=== PATIENT | female | born 1965 | race Caucasian/White ===

== ENCOUNTER → 2017-05-22 | Outpatient (REF) | payer OTHER ==
[2017-05-22 18:19] LABS: BASO # 0.1 10^3/uL (0.0-0.2); BASO % 1.2 % (0.0-1.0); EOS # 0.2 10^3/uL (0.0-0.50); EOS % 3.5 % (0.0-3.0); HEMOGLOBIN 9.2 g/dl (12.0-16.0); IMMATURE GRANULOCYTE % 0.3 % (0-3.0); LYMPH % 29.8 % (24.0-44.0); MEAN CORPUSCULAR HEMOGLOBIN 19.1 pg (27.0-33.0); MEAN CORPUSCULAR HGB CONC 28.8 g/dl (32.0-36.5); MEAN CORPUSCULAR VOLUME 66.4 fl (80.0-96.0); MONO # 0.4 10^3/uL (0.0-0.8); MONO % 5.6 % (0.0-5.0); NEUTROPHILS # 3.9 10^3/uL (1.8-7.7); NEUTROPHILS % 59.6 % (36.0-66.0); PLATELET COUNT, AUTOMATED 344 10^3/uL (150-450); RED BLOOD COUNT 4.82 10^6/uL (4.00-5.40); RED CELL DISTRIBUTION WIDTH 19.4 % (11.5-14.5); WHITE BLOOD COUNT 6.6 10^3/uL (4.0-10.0)
[2017-05-22 18:43] LABS: ALBUMIN 3.8 GM/DL (3.2-5.2); ALBUMIN/GLOBULIN RATIO 1.09 (1.00-1.93); ALKALINE PHOSPHATASE 114 U/L (45-117); ALT/SGPT 22 U/L (12-78); ANION GAP 8 MEQ/L (8-16); AST/SGOT 24 U/L (7-37); BILIRUBIN,TOTAL 0.2 MG/DL (0.2-1.0); BLOOD UREA NITROGEN 8 MG/DL (7-18); CALCIUM LEVEL 9.6 MG/DL (8.5-10.1); CARBON DIOXIDE LEVEL 26 MEQ/L (21-32); CHLORIDE LEVEL 107 MEQ/L (98-107); CREATININE FOR GFR 0.67 MG/DL (0.55-1.30); GLOMERULAR FILTRATION RATE > 60.0 (>51); GLUCOSE, FASTING 96 MG/DL (70-100); POTASSIUM SERUM 3.9 MEQ/L (3.5-5.1); SODIUM LEVEL 141 MEQ/L (136-145); TOTAL 25(OH) VITAMIN D 14.6 NG/ML (30.0-100.0); TOTAL PROTEIN 7.3 GM/DL (6.4-8.2)
[2017-05-22 18:52] LABS: ESTIMATED AVERAGE GLUCOSE 126 MG/DL (60-110)
[2017-05-22 20:30] LABS: CHLAMYDIA DNA AMPLIFICATION NEGATIVE (NEGATIVE); GC DNA AMPLIFICATION NEGATIVE (NEGATIVE)
[2017-05-24 10:45] LABS: HEPATITIS B SURFACE ANTIBODY NEGATIVE (POSITIVE)
== END ==
LOC: M LAB REF 16:22
DX: I10 Essential (primary) hypertension (principal)

== ENCOUNTER → 2017-07-31 | Outpatient (REF) | payer OTHER, MEDICAID | LOC: M LAB REF 18:15 | DX: Z12.4 Encounter for screening for malignant neoplasm of cervix (principal) ==

== ENCOUNTER → 2017-07-31 | Outpatient (REF) | payer OTHER ==
[2017-07-31 20:06] LABS: CHOLESTEROL LEVEL 205 MG/DL (<200); CHOLESTEROL RISK RATIO 3.106 (<5); HDL CHOLESTEROL 66 MG/DL (>40); NON-HDL-C 139 MG/DL; TRIGLYCERIDES LEVEL 60 MG/DL (<150)
[2017-08-02 12:53] LABS: HIV 1&2 SCREEN CENTAUR NEGATIVE (NEGATIVE)
== END ==
LOC: M LAB REF 17:31
DX: Z13.89 Encounter for screening for other disorder (principal); Z13.220 Encounter for screening for lipoid disorders
CPT/HCPCS: 80061

== ENCOUNTER 2017-09-16 13:12 | Outpatient (RCR) | payer OTHER | END 2017-10-12 | LOC: M PT 13:12 | DX: Z51.89 Encounter for other specified aftercare (principal); M25.562 Pain in left knee ==

== ENCOUNTER → 2017-09-27 | Outpatient (CLI) | payer OTHER ==
[2017-09-27 09:40] LABS: ANION GAP 7 MEQ/L (8-16); BLOOD UREA NITROGEN 14 MG/DL (7-18); CALCIUM LEVEL 9.7 MG/DL (8.5-10.1); CARBON DIOXIDE LEVEL 28 MEQ/L (21-32); CHLORIDE LEVEL 108 MEQ/L (98-107); CREATININE FOR GFR 0.76 MG/DL (0.55-1.30); GLOMERULAR FILTRATION RATE > 60.0 (>51); GLUCOSE, FASTING 94 MG/DL (70-100); MAGNESIUM LEVEL 2.3 MG/DL (1.8-2.4); POTASSIUM SERUM 4.6 MEQ/L (3.5-5.1); SODIUM LEVEL 143 MEQ/L (136-145)
[2017-09-27 10:14] LABS: ESTIMATED AVERAGE GLUCOSE 131 MG/DL (60-110); HEMOGLOBIN A1c 6.2 %
== END ==
LOC: M LAB 08:02
DX: R42 Dizziness and giddiness (principal)
CPT/HCPCS: 83735

== ENCOUNTER 2017-10-05 13:08 | Emergency (ER) | payer OTHER ==
[2017-10-05] MEDS: AUGMENTIN 875 MG TAB PO (14:03)
[2017-10-05] MEDS: METOCLOPRAMIDE 10 MG TAB PO (14:03)
[2017-10-05] MEDS: NAPROXEN 250 MG TAB PO (14:04)
== END 2017-10-05 14:18 | disposition home or self-care (01) ==
LOC: M ED 13:08
DX: R51 Headache (principal); I10 Essential (primary) hypertension; J01.90 Acute sinusitis, unspecified
CPT/HCPCS: 99282

== ENCOUNTER 2017-10-17 11:59 | Outpatient (RCR) | payer OTHER | END 2017-11-12 | LOC: M PT 11:59 | DX: Z51.89 Encounter for other specified aftercare (principal); S83.92XD Sprain of unspecified site of left knee, subsequent encounter ==

== ENCOUNTER 2017-11-09 14:31 | Emergency (ER) | payer OTHER ==
[2017-11-09 15:36] LABS: BASO # 0.1 10^3/uL (0.0-0.2); BASO % 1.2 % (0.0-1.0); EOS # 0.2 10^3/uL (0.0-0.50); EOS % 2.7 % (0.0-3.0); HEMATOCRIT 35.1 % (36.0-47.0); HEMOGLOBIN 10.5 g/dl (12.0-15.5); IMMATURE GRANULOCYTE % 0.2 % (0-3.0); LYMPH # 1.6 10^3/uL (1.5-4.5); LYMPH % 28.1 % (24.0-44.0); MEAN CORPUSCULAR HEMOGLOBIN 21.4 pg (27.0-33.0); MEAN CORPUSCULAR HGB CONC 29.9 g/dl (32.0-36.5); MEAN CORPUSCULAR VOLUME 71.5 fl (80.0-96.0); MONO # 0.6 10^3/uL (0.0-0.8); MONO % 10.1 % (0.0-5.0); NEUTROPHILS # 3.2 10^3/uL (1.8-7.7); NEUTROPHILS % 57.7 % (36.0-66.0); PLATELET COUNT, AUTOMATED 372 10^3/uL (150-450); RED BLOOD COUNT 4.91 10^6/uL (4.00-5.40); RED CELL DISTRIBUTION WIDTH 18.6 % (11.5-14.5); WHITE BLOOD COUNT 5.6 10^3/uL (4.0-10.0)
[2017-11-09 16:01] LABS: CONTROL LINE HCG INT CTR LINE PRESENT; HCG, SERUM QUALITATIVE NEGATIVE (NEGATIVE)
[2017-11-09 16:09] LABS: ALBUMIN 3.7 GM/DL (3.2-5.2); ALKALINE PHOSPHATASE 100 U/L (45-117); ALT/SGPT 25 U/L (12-78); ANION GAP 6 MEQ/L (8-16); AST/SGOT 18 U/L (7-37); BILIRUBIN,DIRECT < 0.1 MG/DL (0.0-0.2); BILIRUBIN,TOTAL 0.5 MG/DL (0.2-1.0); BLOOD UREA NITROGEN 11 MG/DL (7-18); CALCIUM LEVEL 9.8 MG/DL (8.5-10.1); CARBON DIOXIDE LEVEL 24 MEQ/L (21-32); CHLORIDE LEVEL 111 MEQ/L (98-107); CREATININE FOR GFR 0.78 MG/DL (0.55-1.30); GLOMERULAR FILTRATION RATE > 60.0 (>51); GLUCOSE, FASTING 88 MG/DL (70-100); POTASSIUM SERUM 4.2 MEQ/L (3.5-5.1); SODIUM LEVEL 141 MEQ/L (136-145); TOTAL PROTEIN 7.8 GM/DL (6.4-8.2)
[2017-11-09 17:59] LABS: CHLAMYDIA DNA AMPLIFICATION NEGATIVE (NEGATIVE); GC DNA AMPLIFICATION NEGATIVE (NEGATIVE)
== END 2017-11-09 17:27 | disposition home or self-care (01) ==
LOC: M ED 14:31
DX: N93.8 Other specified abnormal uterine and vaginal bleeding (principal); D25.9 Leiomyoma of uterus, unspecified; Z79.899 Other long term (current) drug therapy
CPT/HCPCS: 76856

== ENCOUNTER → 2017-11-15 | Outpatient (CLI) | payer OTHER | LOC: M RAD 12:02 | DX: M23.92 Unspecified internal derangement of left knee (principal) | CPT/HCPCS: 73721 ==

== ENCOUNTER → 2017-12-04 | Outpatient (CLI) | payer OTHER ==
[2017-12-04 09:29] LABS: BASO # 0.1 10^3/uL (0.0-0.2); BASO % 1.4 % (0.0-1.0); EOS # 0.3 10^3/uL (0.0-0.50); EOS % 5.1 % (0.0-3.0); HEMATOCRIT 34.7 % (36.0-47.0); HEMOGLOBIN 10.3 g/dl (12.0-15.5); IMMATURE GRANULOCYTE % 0.4 % (0-3.0); LYMPH # 1.5 10^3/uL (1.5-4.5); MEAN CORPUSCULAR HEMOGLOBIN 21.7 pg (27.0-33.0); MEAN CORPUSCULAR HGB CONC 29.7 g/dl (32.0-36.5); MEAN CORPUSCULAR VOLUME 73.2 fl (80.0-96.0); MONO # 0.5 10^3/uL (0.0-0.8); MONO % 8.8 % (0.0-5.0); NEUTROPHILS # 2.8 10^3/uL (1.8-7.7); NEUTROPHILS % 54.3 % (36.0-66.0); PLATELET COUNT, AUTOMATED 272 10^3/uL (150-450); RED BLOOD COUNT 4.74 10^6/uL (4.00-5.40); RED CELL DISTRIBUTION WIDTH 19.3 % (11.5-14.5); WHITE BLOOD COUNT 5.1 10^3/uL (4.0-10.0)
[2017-12-04 09:39] LABS: APPEARANCE, URINE CLOUDY (CLEAR); BACTERIA, URINE AUTO NEGATIVE (NEGATIVE); BILIRUBIN, URINE AUTO NEGATIVE (NEGATIVE); BLOOD, URINE BLOOD 2+ (NEGATIVE); COLOR, URINE YELLOW (YELLOW); GLUCOSE, URINE (UA) AUTO NEGATIVE (NEGATIVE); KETONE, URINE AUTO NEGATIVE (NEGATIVE); LEUKOCYTE ESTERASE, URINE AUTO 3+ (NEGATIVE); NITRITE, URINE AUTO NEGATIVE (NEGATIVE); PROTEIN, URINE AUTO 2+ mg/dL (NEGATIVE); RBC, URINE AUTO 62 /HPF (0-3); SQUAMOUS EPITHELIAL CELL UR AU 15 /HPF (0-6); WBC, URINE AUTO TNTC /HPF (0-3)
[2017-12-04 09:47] LABS: ESTIMATED AVERAGE GLUCOSE 123 MG/DL (60-110); HEMOGLOBIN A1c 5.9 %
[2017-12-04 09:59] LABS: ALBUMIN 3.7 GM/DL (3.2-5.2); ALBUMIN/GLOBULIN RATIO 1.06 (1.00-1.93); ALKALINE PHOSPHATASE 100 U/L (45-117); ALT/SGPT 18 U/L (12-78); ANION GAP 8 MEQ/L (8-16); AST/SGOT 14 U/L (7-37); BILIRUBIN,TOTAL 0.3 MG/DL (0.2-1.0); BLOOD UREA NITROGEN 18 MG/DL (7-18); CALCIUM LEVEL 9.6 MG/DL (8.5-10.1); CARBON DIOXIDE LEVEL 23 MEQ/L (21-32); CHLORIDE LEVEL 111 MEQ/L (98-107); CHOLESTEROL LEVEL 169 MG/DL (<200); CHOLESTEROL RISK RATIO 2.913 (<5); CREATININE FOR GFR 0.97 MG/DL (0.55-1.30); FERRITIN 5 NG/ML (8-252); GLOMERULAR FILTRATION RATE > 60.0 (>51); GLUCOSE, FASTING 92 MG/DL (70-100); HDL CHOLESTEROL 58 MG/DL (>40); IRON (FE) 30 UG/DL (50-170); LDL CHOLESTEROL 93.4 MG/DL (<100); NON-HDL-C 111 MG/DL; PERCENT SATURATION 7.3 % (13.2-45.0); POTASSIUM SERUM 4.3 MEQ/L (3.5-5.1); SODIUM LEVEL 142 MEQ/L (136-145); TOTAL IRON BINDING CAPACITY 412 UG/DL (250-450); TOTAL PROTEIN 7.2 GM/DL (6.4-8.2); TRIGLYCERIDES LEVEL 88 MG/DL (<150)
== END ==
LOC: M LAB 08:22
DX: I10 Essential (primary) hypertension (principal); R73.03 Prediabetes; D50.9 Iron deficiency anemia, unspecified
CPT/HCPCS: 83550

== ENCOUNTER 2018-01-26 13:18 | Emergency (ER) | payer OTHER | END 2018-01-26 13:42 | disposition home or self-care (01) | LOC: M ED 13:18 | DX: J32.9 Chronic sinusitis, unspecified (principal); E66.9 Obesity, unspecified; F17.200 Nicotine dependence, unspecified, uncomplicated; Z79.899 Other long term (current) drug therapy | CPT/HCPCS: 99282 ==

== ENCOUNTER → 2018-02-24 | Outpatient (CLI) | payer OTHER ==
[2018-02-24 09:41] LABS: BASO # 0.1 10^3/uL (0.0-0.2); BASO % 1.2 % (0.0-1.0); EOS # 0.4 10^3/uL (0.0-0.50); EOS % 7.7 % (0.0-3.0); HEMATOCRIT 35.9 % (36.0-47.0); HEMOGLOBIN 10.7 g/dl (12.0-15.5); IMMATURE GRANULOCYTE % 0.4 % (0-3.0); LYMPH # 1.6 10^3/uL (1.5-4.5); LYMPH % 31.8 % (24.0-44.0); MEAN CORPUSCULAR HGB CONC 29.8 g/dl (32.0-36.5); MONO # 0.3 10^3/uL (0.0-0.8); MONO % 6.7 % (0.0-5.0); NEUTROPHILS # 2.6 10^3/uL (1.8-7.7); NEUTROPHILS % 52.2 % (36.0-66.0); PLATELET COUNT, AUTOMATED 264 10^3/uL (150-450); RED BLOOD COUNT 4.66 10^6/uL (4.00-5.40); RED CELL DISTRIBUTION WIDTH 19.9 % (11.5-14.5); WHITE BLOOD COUNT 4.9 10^3/uL (4.0-10.0)
[2018-02-24 10:12] LABS: CONTROL LINE HCG INT CTR LINE PRESENT; HCG, SERUM QUALITATIVE NEGATIVE (NEGATIVE)
[2018-02-24 10:29] LABS: ALBUMIN 3.6 GM/DL (3.2-5.2); ALKALINE PHOSPHATASE 121 U/L (45-117); ALT/SGPT 39 U/L (12-78); ANION GAP 6 MEQ/L (8-16); AST/SGOT 28 U/L (7-37); BILIRUBIN,TOTAL 0.3 MG/DL (0.2-1.0); BLOOD UREA NITROGEN 15 MG/DL (7-18); CALCIUM LEVEL 9.7 MG/DL (8.5-10.1); CARBON DIOXIDE LEVEL 25 MEQ/L (21-32); CHLORIDE LEVEL 109 MEQ/L (98-107); CREATININE FOR GFR 0.92 MG/DL (0.55-1.30); GLOMERULAR FILTRATION RATE > 60.0 (>51); GLUCOSE, FASTING 81 MG/DL (70-100); POTASSIUM SERUM 4.5 MEQ/L (3.5-5.1); SODIUM LEVEL 140 MEQ/L (136-145); TOTAL PROTEIN 7.2 GM/DL (6.4-8.2)
== END ==
LOC: M LAB 08:47
DX: D50.9 Iron deficiency anemia, unspecified (principal)
CPT/HCPCS: 80053

== ENCOUNTER → 2018-03-17 | Outpatient (CLI) | payer OTHER | LOC: M RAD 08:19 | DX: N85.4 Malposition of uterus (principal); D25.1 Intramural leiomyoma of uterus | CPT/HCPCS: 76856 ==

== ENCOUNTER 2018-05-06 15:55 | Emergency (ER) | payer OTHER ==
[~2018-05-06] VITALS: Ht 172.7 cm; Wt 94.5 kg
[~2018-05-06 15:55] MED LIST: AUGM875T28 PO; CLAR1TAB2 PO; EXCETAB81 PO; LISI10TA4 PO; NAPR-50 PO; NIFE30TA7; NIFE60TA40 PO; REGL10TA6 PO; TRIAMCINOLON
[2018-05-06] MEDS ORDERED: TRIAMCINOLON (16:00)
[2018-05-06] MEDS ORDERED: AMIT50TA (16:00)
[2018-05-06] MEDS ORDERED: AUGM875T28 PO (17:59)
[2018-05-06] MEDS ORDERED: ADACEL/BOOSTRIX VACCINE (DIPHTH/PERTUSS/ACELL/TETANUS)0.5ML SYR (90715) IM ONE (18:00)
[2018-05-06] MEDS ORDERED: AUGMENTIN 875 MG TAB PO ONE (18:00)
[2018-05-06 18:08] VITALS: BP 144/92
== END 2018-05-06 18:30 | disposition home or self-care (01) ==
LOC: M ED 15:55
DX: S51.831A Puncture wound without foreign body of right forearm, initial encounter (principal); W55.01XA Bitten by cat, initial encounter; Y92.098 Other place in other non-institutional residence as the place of occurrence of the external cause; R51 Headache; Z79.899 Other long term (current) drug therapy

== ENCOUNTER 2018-08-17 17:58 | Emergency (ER) | payer OTHER ==
[~2018-08-17] VITALS: Ht 172.7 cm; Wt 93.1 kg
[2018-08-17 17:58] VITALS: BP 137/93
[~2018-08-17 17:58] MED LIST changes: +AMIT50TA; -NAPR-50 PO; +NAPR-837 PO
[2018-08-17] MEDS ORDERED: LORA-674 (18:03)
[2018-08-17] MEDS ORDERED: ARTI99.0 (18:03)
--- NOTE | 2018-08-18 07:53 | REP ---
LEFT ANKLE SERIES: Four views of the left ankle performed. I see no acute fracture or dislocation. There is a tiny inferior calcaneal spur. There appears to be an unfused ossicle at the dorsal aspect of the navicular bone. There is mild soft tissue swelling. The ankle mortise is anatomic. There is a tiny round calcific density just distal to the medial malleolus which has the appearance of a normal avulsion fracture. IMPRESSION: No evidence of acute fracture or dislocation. Mild soft tissue swelling. Electronically Signed by Maico Molina MD 08/18/2018 05:24 P
== END 2018-08-17 19:15 | disposition home or self-care (01) ==
LOC: M ED 17:58
DX: S93.402A Sprain of unspecified ligament of left ankle, initial encounter (principal); X50.9XXA Other and unspecified overexertion or strenuous movements or postures, initial encounter; Y92.018 Other place in single-family (private) house as the place of occurrence of the external cause; Z79.899 Other long term (current) drug therapy

== ENCOUNTER → 2018-10-01 | Outpatient (REF) | payer OTHER, MEDICAID ==
[~2018-10-01] MED LIST changes: +ARTI99.0; +LORA-674
[2018-10-01 18:09] LABS: BASO # 0.1 10^3/uL (0.0-0.2); BASO % 1.4 % (0.0-1.0); EOS # 0.2 10^3/uL (0.0-0.50); EOS % 4.4 % (0.0-3.0); HEMATOCRIT 43.3 % (36.0-47.0); HEMOGLOBIN 13.7 g/dl (12.0-15.5); LYMPH # 1.4 10^3/uL (1.5-4.5); MEAN CORPUSCULAR HEMOGLOBIN 28.5 pg (27.0-33.0); MEAN CORPUSCULAR HGB CONC 31.6 g/dl (32.0-36.5); MONO # 0.3 10^3/uL (0.0-0.8); MONO % 7.6 % (0.0-5.0); NEUTROPHILS # 2.3 10^3/uL (1.8-7.7); NEUTROPHILS % 53.4 % (36.0-66.0); PLATELET COUNT, AUTOMATED 295 10^3/uL (150-450); RED BLOOD COUNT 4.81 10^6/uL (4.00-5.40); WHITE BLOOD COUNT 4.4 10^3/uL (4.0-10.0)
[2018-10-01 18:20] LABS: ALBUMIN 3.6 GM/DL (3.2-5.2); ALT/SGPT 41 U/L (12-78); BILIRUBIN,TOTAL 0.3 MG/DL (0.2-1.0); BLOOD UREA NITROGEN 10 MG/DL (7-18); CALCIUM LEVEL 10.2 MG/DL (8.5-10.1); CARBON DIOXIDE LEVEL 26 MEQ/L (21-32); CHLORIDE LEVEL 108 MEQ/L (98-107); CHOLESTEROL LEVEL 220 MG/DL (<200); CHOLESTEROL RISK RATIO 3.606 (<5); CREATININE FOR GFR 0.82 MG/DL (0.55-1.30); FREE T4 1.13 NG/DL (0.76-1.46); GLOMERULAR FILTRATION RATE > 60.0 (>51); GLUCOSE, FASTING 90 MG/DL (70-100); HDL CHOLESTEROL 61 MG/DL (>40); LDL CHOLESTEROL 143 MG/DL (<100); NON-HDL-C 159 MG/DL; POTASSIUM SERUM 4.8 MEQ/L (3.5-5.1); SODIUM LEVEL 140 MEQ/L (136-145); THYROID STIMULATING HORMONE 0.779 uIU/ML (0.358-3.740); TOTAL 25(OH) VITAMIN D 15.7 NG/ML (30.0-100.0); TOTAL PROTEIN 7.3 GM/DL (6.4-8.2); TRIGLYCERIDES LEVEL 80 MG/DL (<150)
[2018-10-01 20:32] LABS: HEMOGLOBIN A1c 5.5 %
== END ==
LOC: M LAB REF 17:03
PROVIDERS: ATTEND Nurse Practitioner Family
DX: I10 Essential (primary) hypertension (principal); Z13.9 Encounter for screening, unspecified

== ENCOUNTER → 2018-11-05 | Outpatient (REF) | payer OTHER ==
[2018-11-11 14:07] LABS: HPV HYBRID CAPTURE II Positive (Negative)
== END ==
LOC: M LAB REF 16:29
PROVIDERS: ATTEND Obstetrics & Gynecology
DX: Z12.4 Encounter for screening for malignant neoplasm of cervix (principal)

== ENCOUNTER → 2018-12-20 | Outpatient (CLI) | payer OTHER ==
[~2018-12-20] MED LIST changes: -ARTI99.0; +ARTIDRO2
--- NOTE | 2018-12-22 12:21 | REP ---
MRI of the brain without contrast Indication: Migraine without aura not intractable. Comparison: None Technique: MRI of the brain was performed without contrast utilizing sagittal T1 FLAIR, and axial DWI, T1, T2, GRE, and FLAIR imaging. Findings: There is no restricted diffusion to suggest acute ischemia or infarction. There are scattered T2 hyperintensities within the periventricular and subcortical white matter of both cerebral hemispheres which are nonspecific but suggestive of microvascular ischemic disease. There are T2 hyperintensities within the pericallosal region as well. There is mild focal thinning of the body of the corpus callosum. The ventricles and sulci are symmetric. There is no extra-axial fluid collection. There is no mass effect. There is no midline shift or basal cistern effacement. The visualized flow voids are preserved. The visualized paranasal sinuses and mastoid air cells are clear. There is a 32 x 18 x 26 mm (AP, TR, CC) lobulated T2 hyperintense T1 hypointense lesion within the superficial lobe of the left parotid gland, surrounded by fat. Impression: No acute intracranial abnormality. Nonspecific white matter changes which could represent microvascular ischemic disease and/or sequela of migraines. Demyelinating disease is not excluded. Incompletely characterized 3.2 x 1.8 x 2.6 cm left parotid gland lesion. Further imaging characterization could be made with CT or MRI of the neck with contrast. Electronically Signed by Mninie Kirby MD 12/22/2018 09:14 A
== END ==
LOC: M RAD 11:21
DX: F41.1 Generalized anxiety disorder (principal); G43.009 Migraine without aura, not intractable, without status migrainosus; G44.229 Chronic tension-type headache, not intractable

== ENCOUNTER → 2019-01-06 | Outpatient (CLI) | payer OTHER ==
[2019-01-06 15:26] LABS: APPEARANCE, URINE CLEAR (CLEAR); BACTERIA, URINE AUTO NEGATIVE (NEGATIVE); BILIRUBIN, URINE AUTO NEGATIVE (NEGATIVE); BLOOD, URINE BLOOD 1+ (NEGATIVE); COLOR, URINE YELLOW (YELLOW); GLUCOSE, URINE (UA) AUTO NEGATIVE (NEGATIVE); KETONE, URINE AUTO TRACE mg/dL (NEGATIVE); LEUKOCYTE ESTERASE, URINE AUTO TRACE (NEGATIVE); MUCUS, URINE SMALL (NEGATIVE); NITRITE, URINE AUTO NEGATIVE (NEGATIVE); PROTEIN, URINE AUTO NEGATIVE (NEGATIVE); RBC, URINE AUTO 7 /HPF (0-3); SPECIFIC GRAVITY URINE AUTO 1.017 (1.002-1.035); SQUAMOUS EPITHELIAL CELL UR AU 4 /HPF (0-6); WBC, URINE AUTO 6 /HPF (0-3)
[2019-01-06 15:28] LABS: BASO # 0.1 10^3/uL (0.0-0.2); BASO % 1.7 % (0.0-1.0); EOS # 0.3 10^3/uL (0.0-0.5); EOS % 4.5 % (0.0-3.0); HEMATOCRIT 42.4 % (36.0-47.0); HEMOGLOBIN 13.5 g/dl (12.0-15.5); LYMPH % 35.7 % (24.0-44.0); MEAN CORPUSCULAR HEMOGLOBIN 28.4 pg (27.0-33.0); MEAN CORPUSCULAR HGB CONC 31.8 g/dl (32.0-36.5); MEAN CORPUSCULAR VOLUME 89.1 fl (80.0-96.0); MONO # 0.4 10^3/uL (0.0-0.8); MONO % 6.6 % (0.0-5.0); NEUTROPHILS # 2.9 10^3/uL (1.5-8.5); NEUTROPHILS % 51.2 % (36.0-66.0); PLATELET COUNT, AUTOMATED 297 10^3/uL (150-450); RED BLOOD COUNT 4.76 10^6/uL (4.00-5.40); WHITE BLOOD COUNT 5.7 10^3/uL (4.0-10.0)
[2019-01-06 15:51] LABS: HEMOGLOBIN A1c 5.4 %
[2019-01-06 15:55] LABS: ALBUMIN 3.7 GM/DL (3.2-5.2); ALT/SGPT 27 U/L (12-78); BILIRUBIN,TOTAL 0.3 MG/DL (0.2-1.0); BLOOD UREA NITROGEN 10 MG/DL (7-18); CALCIUM LEVEL 9.7 MG/DL (8.5-10.1); CARBON DIOXIDE LEVEL 25 MEQ/L (21-32); CHLORIDE LEVEL 107 MEQ/L (98-107); CHOLESTEROL LEVEL 139 MG/DL (<200); CHOLESTEROL RISK RATIO 2.074 (<5); CREATININE FOR GFR 0.87 MG/DL (0.55-1.30); FREE T4 1.14 NG/DL (0.76-1.46); GLOMERULAR FILTRATION RATE > 60.0 (>51); GLUCOSE, FASTING 91 MG/DL (70-100); HDL CHOLESTEROL 67 MG/DL (>40); LDL CHOLESTEROL 59 MG/DL (<100); NON-HDL-C 72 MG/DL; POTASSIUM SERUM 4.2 MEQ/L (3.5-5.1); SODIUM LEVEL 141 MEQ/L (136-145); TOTAL 25(OH) VITAMIN D 21.4 NG/ML (30.0-100.0); TOTAL PROTEIN 7.1 GM/DL (6.4-8.2); TRIGLYCERIDES LEVEL 63 MG/DL (<150)
[2019-01-09 00:08] LABS: Lyme Disease IgG/IgM Antibodie <0.91 ISR (0.00-0.90); Lyme Disease IgM Ab Quantitati <0.80 index (0.00-0.79)
== END ==
LOC: M LAB 14:46
PROVIDERS: ATTEND Family Medicine
DX: M25.50 Pain in unspecified joint (principal); Z13.228 Encounter for screening for other metabolic disorders

== ENCOUNTER 2019-02-12 10:41 | Emergency (ER) | payer OTHER ==
[~2019-02-12] VITALS: Ht 172.7 cm; Wt 97.6 kg
[2019-02-12] MEDS ORDERED: GABA-843 (10:50)
[2019-02-12] MEDS ORDERED: SUMA50TA2 (10:50)
[2019-02-12] MEDS ORDERED: ATOR1TAB19 (10:50)
[2019-02-12] MEDS ORDERED: DOXY100T (10:50)
--- NOTE | 2019-02-12 11:59 | REP ---
Clinical: Cellulitis. Evaluate for abscess. Technique: Real time booth scale and color evaluation using linear and curved array transducers. Findings: Directed ultrasound examination of the right gluteal region demonstrates a 8 x 8 x 8 mm complex fluid collection with subtle adjacent vascularity as well as sinus tract to the skin surface. Surrounding subcutaneous edema noted. Impression : Perirectal abscess with sinus tract. Electronically Signed by Kevin Mireles MD 02/12/2019 11:50 A
[2019-02-12] MEDS ORDERED: LIDOCAINE 1% MDV 20ML VIAL SC ONE (12:30)
[2019-02-12] MEDS ORDERED: SULF1TAB93 PO (12:43)
[2019-02-12 12:48] VITALS: BP 135/82
== END 2019-02-12 12:52 | disposition home or self-care (01) ==
LOC: M ED 10:41 → EEVIPCON 10:41 → M ED 12:52
DX: L02.31 Cutaneous abscess of buttock (principal); A49.02 Methicillin resistant Staphylococcus aureus infection, unspecified site; I10 Essential (primary) hypertension

== ENCOUNTER 2019-04-26 17:47 | Emergency (ER) | payer OTHER ==
[~2019-04-26] VITALS: Ht 172.7 cm; Wt 102.2 kg
[~2019-04-26 17:47] MED LIST changes: +ATOR1TAB19; +DOXY100T; +GABA-843; +NIFE1TAB52; -NIFE30TA7; +SULF1TAB93 PO; +SUMA50TA2
[2019-04-26 17:48] VITALS: BP 133/80
--- NOTE | 2019-04-27 01:53 | REP ---
Clinical: Trauma. Technique: AP, lateral, bilateral oblique views left wrist . Findings: The carpal bones, surrounding osseous structures, soft tissues, and joint spaces are normal. There is no evidence for acute fracture or dislocation. No subcutaneous emphysema or radiodense foreign body. Impression: Normal left wrist series. No acute fracture or dislocation Electronically Signed by Kevin Mireles MD 04/27/2019 01:44 A
--- NOTE | 2019-04-27 01:54 | REP ---
Clinical: Trauma. Technique: AP and lateral views of the left forearm. Findings: No acute fracture dislocation. Skeletal structures, joint spaces, and surrounding soft tissues appear normal for age. No subcutaneous emphysema or radiodense foreign body. Impression: No acute fracture or dislocation. Electronically Signed by Kevin Mireles MD 04/27/2019 01:45 A
== END 2019-04-26 18:52 | disposition home or self-care (01) ==
LOC: M ED 17:47
DX: S63.502A Unspecified sprain of left wrist, initial encounter (principal); W01.0XXA Fall on same level from slipping, tripping and stumbling without subsequent striking against object, initial encounter; Y92.019 Unspecified place in single-family (private) house as the place of occurrence of the external cause; Z79.84 Long term (current) use of oral hypoglycemic drugs; Z79.899 Other long term (current) drug therapy

== ENCOUNTER 2019-06-05 17:58 | Emergency (ER) | payer OTHER ==
[~2019-06-05] VITALS: Ht 167.6 cm; Wt 100.0 kg
[~2019-06-05 17:58] MED LIST changes: -ARTIDRO2; +POLYOPD
[2019-06-05] MEDS ORDERED: GABA600T4 (18:13)
[2019-06-05 18:57] LABS: BASO # 0.1 10^3/uL (0.0-0.2); BASO % 1.2 % (0.0-1.0); EOS # 0.3 10^3/uL (0.0-0.5); EOS % 4.4 % (0.0-3.0); HEMATOCRIT 41.2 % (36.0-47.0); HEMOGLOBIN 13.1 g/dl (12.0-15.5); LYMPH # 1.9 10^3/uL (1.5-5.0); LYMPH % 28.2 % (24.0-44.0); MEAN CORPUSCULAR HEMOGLOBIN 28.4 pg (27.0-33.0); MEAN CORPUSCULAR HGB CONC 31.8 g/dl (32.0-36.5); MEAN CORPUSCULAR VOLUME 89.2 fl (80.0-96.0); MONO # 0.5 10^3/uL (0.0-0.8); NEUTROPHILS % 58.8 % (36.0-66.0); PLATELET COUNT, AUTOMATED 307 10^3/uL (150-450); RED BLOOD COUNT 4.62 10^6/uL (4.00-5.40); WHITE BLOOD COUNT 6.9 10^3/uL (4.0-10.0)
[2019-06-05 19:15] LABS: HEMOGLOBIN A1c 6.2 %
[2019-06-05 19:21] LABS: MAGNESIUM LEVEL 2.2 MG/DL (1.8-2.4); PHOSPHORUS LEVEL 2.8 MG/DL (2.5-4.9)
[2019-06-05] MEDS ORDERED: METF500T13 PO (21:50)
[2019-06-05] MEDS ORDERED: metFORMIN (GLUCOPHAGE) 500 MG TAB PO ONE (22:00)
[2019-06-05 22:37] VITALS: BP 146/94
== END 2019-06-05 22:40 | disposition home or self-care (01) ==
LOC: M ED 17:58
DX: R73.03 Prediabetes (principal); I10 Essential (primary) hypertension; F17.218 Nicotine dependence, cigarettes, with other nicotine-induced disorders

== ENCOUNTER → 2019-07-21 | Outpatient (CLI) | payer OTHER ==
[~2019-07-21] MED LIST changes: +GABA600T4; +METF500T13 PO
--- NOTE | 2019-07-21 11:55 | REP ---
MRI BRAIN WITHOUT CONTRAST: HISTORY: Other intractable migraine. Headaches. Comparison MRI study of the brain is from December 20, 2018. TECHNIQUE: Axial and sagittal imaging planes are utilized for T1- and T2-weighted scans. Sequences include spin echo, fast spin echo, FLAIR, and diffusion weighted sequences. MRI FINDINGS: The previously noted heterogeneous mass in the left parotid gland is again visible. It is not completely seen on all sequences but measures 3.3 x 2.7 x 1.9 cm. It appears to be essentially unchanged. No orbital abnormality is seen. There is no MR evidence of significant paranasal sinus disease. No bony calvarial lesion is seen. Craniocervical junction and upper cervical cord are unremarkable. The previously noted punctate hypointensity focus seen in the left side of the pastora on gradient echo sequences is a less conspicuous. No abnormality on FLAIR or turbo spin echo or T1-weighted scans to correspond with this. There is no evidence of restricted diffusion here or elsewhere on diffusion weighted scans. There are scattered subcortical and periventricular white matter foci of T2 hyperintensity again noted consistent with small vessel changes. These are stable from the prior study. No mass or extra-axial fluid collection is seen. IMPRESSION: 1. There is a 3.3 cm mass in the left parotid gland again noted unchanged from the comparison study of December 20, 2018. 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 2. Small vessel atherosclerotic changes in the periventricular and subcortical white matter bilaterally also unchanged from the comparison MRI study. 3. Previously noted punctate hypointensity in the left pastora is less conspicuous. No new lesion seen. Otherwise unremarkable. Electronically Signed by Remberto Delong MD 07/21/2019 02:51 P
== END ==
LOC: M RAD 10:30
PROVIDERS: ATTEND Family Medicine
DX: G43.811 Other migraine, intractable, with status migrainosus (principal)

== ENCOUNTER → 2019-08-17 | Outpatient (CLI) | payer OTHER ==
--- NOTE | 2019-08-17 14:53 | REP ---
MR ANGIOGRAPHY OF THE NECK WITHOUT CONTRAST: HISTORY: Chronic tension type headache, intractable. TECHNIQUE: 2D MR angiography is acquired. Maximum intensity projection images are generated. MR ANGIOGRAPHIC FINDINGS: Thr great vessel origins are unremarkable as visualized. Common carotid arteries are intact and symmetric. Vertebral arteries are widely patent in the neck and codominant. The carotid bifurcations show no evidence of significant plaquing and no visible narrowing on either side. IMPRESSION: Negative MR angiography of the carotid arteries and vertebral arteries in the neck. Electronically Signed by Remberto Delong MD 08/17/2019 03:23 P
== END ==
LOC: M RAD 12:27
PROVIDERS: ATTEND Family Medicine
DX: G44.221 Chronic tension-type headache, intractable (principal)

== ENCOUNTER → 2019-09-19 | Outpatient (CLI) | payer OTHER ==
[2019-09-19 10:50] LABS: HEMOGLOBIN 13.1 g/dl (12.0-15.5); PLATELET COUNT, AUTOMATED 284 10^3/uL (150-450)
[2019-09-19 11:30] LABS: BLOOD UREA NITROGEN 9 MG/DL (7-18); CALCIUM LEVEL 9.8 MG/DL (8.5-10.1); CARBON DIOXIDE LEVEL 26 MEQ/L (21-32); CHLORIDE LEVEL 110 MEQ/L (98-107); CREATININE FOR GFR 0.88 MG/DL (0.55-1.30); GLOMERULAR FILTRATION RATE > 60.0 (>51); GLUCOSE, FASTING 105 MG/DL (70-100); SODIUM LEVEL 142 MEQ/L (136-145)
--- NOTE | 2019-09-19 15:53 | ECGEPIP ---
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 No prior ECG available for comparison at the time of interpretation. Electronically Signed on 09-19-2019 15:53:03 EDT by Jair Hoffman
== END ==
LOC: M LAB 10:30
PROVIDERS: ATTEND Orthopaedic Surgery
DX: Z01.818 Encounter for other preprocedural examination (principal); Z79.899 Other long term (current) drug therapy

== ENCOUNTER → 2019-09-20 | Outpatient (CLI) | payer OTHER | LOC: M LABSMTC 10:30 | PROVIDERS: ATTEND Physician Assistant Surgical | DX: Z03.818 Encounter for observation for suspected exposure to other biological agents ruled out (principal); Z11.59 Encounter for screening for other viral diseases ==

== ENCOUNTER → 2019-11-02 | Outpatient (CLI) | payer OTHER ==
[2019-11-02 07:40] LABS: BASO # 0.1 10^3/uL (0.0-0.2); BASO % 0.8 % (0.0-1.0); EOS # 0.2 10^3/uL (0.0-0.5); EOS % 3.3 % (0.0-3.0); HEMATOCRIT 42.1 % (36.0-47.0); HEMOGLOBIN 13.5 g/dl (12.0-15.5); LYMPH # 1.7 10^3/uL (1.5-5.0); LYMPH % 28.8 % (24.0-44.0); MEAN CORPUSCULAR HGB CONC 32.1 g/dl (32.0-36.5); MEAN CORPUSCULAR VOLUME 87.2 fl (80.0-96.0); MONO # 0.5 10^3/uL (0.0-0.8); MONO % 7.6 % (0.0-5.0); NEUTROPHILS # 3.6 10^3/uL (1.5-8.5); PLATELET COUNT, AUTOMATED 304 10^3/uL (150-450); RED BLOOD COUNT 4.83 10^6/uL (4.00-5.40); WHITE BLOOD COUNT 6.1 10^3/uL (4.0-10.0)
[2019-11-02 08:11] LABS: ALBUMIN 3.3 GM/DL (3.2-5.2); ALT/SGPT 22 U/L (12-78); BILIRUBIN,TOTAL 0.2 MG/DL (0.2-1.0); BLOOD UREA NITROGEN 13 MG/DL (7-18); CALCIUM LEVEL 9.8 MG/DL (8.5-10.1); CARBON DIOXIDE LEVEL 26 MEQ/L (21-32); CHLORIDE LEVEL 110 MEQ/L (98-107); CHOLESTEROL LEVEL 119 MG/DL (<200); CHOLESTEROL RISK RATIO 2.479 (<5); CREATININE FOR GFR 0.85 MG/DL (0.55-1.30); FREE THYROXINE INDEX 3.8 % (1.3-4.8); GLOMERULAR FILTRATION RATE > 60.0 (>51); GLUCOSE, FASTING 98 MG/DL (70-100); HDL CHOLESTEROL 48 MG/DL (>40); LDL CHOLESTEROL 56 MG/DL (<100); NON-HDL-C 71 MG/DL; POTASSIUM SERUM 4.3 MEQ/L (3.5-5.1); SODIUM LEVEL 142 MEQ/L (136-145); T UPTAKE 33 % (30-39); THYROXINE (T4) 11.5 UG/DL (4.5-12.0); TOTAL PROTEIN 6.5 GM/DL (6.4-8.2); TRIGLYCERIDES LEVEL 76 MG/DL (<150)
[2019-11-02 08:20] LABS: HEMOGLOBIN A1c 5.8 %
[2019-11-02 10:50] LABS: TOTAL 25(OH) VITAMIN D 15.4 NG/ML (30.0-100.0)
== END ==
LOC: M LAB 07:08
PROVIDERS: ATTEND Nurse Practitioner Psychiatric/Mental Health
DX: F39 Unspecified mood [affective] disorder (principal)

== ENCOUNTER → 2020-06-14 | Outpatient (CLI) | payer OTHER ==
[~2020-06-14] MED LIST changes: +GABA-282; -GABA-843; +LISI10TA22 PO; -LISI10TA4 PO
--- NOTE | 2020-06-14 19:38 | ECGEPIP ---
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
== END ==
LOC: M EKG 09:20
PROVIDERS: ATTEND Orthopaedic Surgery
DX: Z01.810 Encounter for preprocedural cardiovascular examination (principal)

== ENCOUNTER → 2020-09-13 | Outpatient (CLI) | payer OTHER ==
[~2020-09-13] MED LIST changes: +BACTDSTA PO; -SULF1TAB93 PO
[2020-09-13 15:18] LABS: C REACTIVE PROTEIN QUANTITATIV < 0.30 MG/DL (0.00-0.30); RHEUMATOID FACTOR QUANT < 10.0 IU/ML (<15.0)
== END ==
LOC: M LAB 14:28
PROVIDERS: ATTEND Physician Assistant
DX: M25.561 Pain in right knee (principal)

== ENCOUNTER → 2021-12-28 | Outpatient (CLI) | payer OTHER ==
[2021-12-29 08:09] LABS: MUMPS VIRUS IgG ANTIBODY 91.6 AU/mL (Immune >10.9)
== END ==
LOC: M LAB 08:01
PROVIDERS: ATTEND Nurse Practitioner Family
DX: Z01.84 Encounter for antibody response examination (principal)

== ENCOUNTER → 2022-03-12 | Outpatient (CLI) | payer OTHER ==
[2022-03-12 10:24] LABS: HEMATOCRIT 44.5 % (36.0-47.0); HEMOGLOBIN 14.1 g/dl (12.0-15.5); MEAN CORPUSCULAR HEMOGLOBIN 27.7 pg (27.0-33.0); MEAN CORPUSCULAR HGB CONC 31.7 g/dl (32.0-36.5); MEAN CORPUSCULAR VOLUME 87.4 fl (80.0-96.0); PLATELET COUNT, AUTOMATED 286 10^3/uL (150-450); RED BLOOD COUNT 5.09 10^6/uL (4.00-5.40)
[2022-03-12 10:46] LABS: INR 0.94; PROTHROMBIN TIME 12.7 SECONDS (12.5-14.5)
[2022-03-12 11:06] LABS: ERYTHROCYTE SEDIMENTATION RATE 14 mm/hr (0-30)
[2022-03-12 13:21] LABS: CHLORIDE LEVEL 105 MMOL/L (98-107); SODIUM LEVEL 141 MMOL/L (136-145)
[2022-03-12 13:22] LABS: ALBUMIN 3.7 G/DL (3.2-5.2); CARBON DIOXIDE LEVEL 25 MMOL/L (20-31)
[2022-03-12 13:26] LABS: BLOOD UREA NITROGEN 13 MG/DL (9-23)
[2022-03-12 13:27] LABS: CALCIUM LEVEL 9.4 MG/DL (8.5-10.1); GLUCOSE, FASTING 84 MG/DL (60-100)
[2022-03-12 13:28] LABS: ALT/SGPT 22 U/L (7.0-40); BILIRUBIN,TOTAL 0.4 MG/DL (0.3-1.2); TOTAL PROTEIN 6.7 G/DL (5.7-8.2)
[2022-03-12 13:29] LABS: GLOMERULAR FILTRATION RATE > 60.0 (>51)
[2022-03-12 13:34] LABS: POTASSIUM SERUM 4.5 MMOL/L (3.5-5.1)
== END ==
LOC: M LAB 08:25
PROVIDERS: ATTEND Orthopaedic Surgery
DX: M17.11 Unilateral primary osteoarthritis, right knee (principal)

== ENCOUNTER → 2022-03-12 | Outpatient (CLI) | payer OTHER ==
[2022-03-13 06:08] LABS: MUMPS VIRUS IgG ANTIBODY 86.5 AU/mL (Immune >10.9)
== END ==
LOC: M LAB 08:21
PROVIDERS: ATTEND Nurse Practitioner Family
DX: Z01.84 Encounter for antibody response examination (principal)

== ENCOUNTER → 2023-03-29 | Outpatient (REF) | payer OTHER ==
[~2023-03-29] MED LIST changes: +ARTIDRO4; +LORA-1041; -LORA-674; -NIFE60TA40 PO; +NIFE60TA96 PO; -POLYOPD
[2023-04-01 14:07] LABS: ANA (HEP2) Negative (.); SSA SJOGRENS A <0.2 AI (0.0-0.9); SSB SJOGRENS B 5.1 AI (0.0-0.9)
== END ==
LOC: M SFHCRHEU 15:26
PROVIDERS: ATTEND Internal Medicine
DX: R76.8 Other specified abnormal immunological findings in serum (principal); R76.0 Raised antibody titer

== ENCOUNTER → 2023-11-29 | Outpatient (CLI) | payer OTHER | LOC: M WHC 09:23 | PROVIDERS: ATTEND Nurse Practitioner | DX: N84.1 Polyp of cervix uteri (principal); N87.0 Mild cervical dysplasia ==

== ENCOUNTER → 2024-01-24 | Outpatient (CLI) | payer OTHER ==
[~2024-01-24] MED LIST changes: +GABA-1172; +GABA-1490; -GABA-282; -GABA600T4
== END ==
LOC: M PLAIMG 11:05
PROVIDERS: ATTEND Physician Assistant
DX: S63.92XD Sprain of unspecified part of left wrist and hand, subsequent encounter (principal); M19.032 Primary osteoarthritis, left wrist; R20.2 Paresthesia of skin

== ENCOUNTER 2024-03-24 13:53 | Emergency (ER) | payer OTHER ==
[~2024-03-24] VITALS: Ht 170.2 cm; Wt 105.8 kg
[2024-03-24 19:21] VITALS: BP 170/110; TEMP 99.6; O2SAT 98
== END 2024-03-24 19:24 | disposition home or self-care (01) ==
LOC: M ED 18:14
DX: S82.62XA Displaced fracture of lateral malleolus of left fibula, initial encounter for closed fracture (principal); M77.32 Calcaneal spur, left foot; M25.472 Effusion, left ankle; W00.0XXA Fall on same level due to ice and snow, initial encounter; I10 Essential (primary) hypertension; Y92.9 Unspecified place or not applicable; Y93.9 Activity, unspecified; Y99.9 Unspecified external cause status; Z79.02 Long term (current) use of antithrombotics/antiplatelets; Z79.4 Long term (current) use of insulin; Z79.899 Other long term (current) drug therapy

== ENCOUNTER → 2024-04-02 | Outpatient (REF) | payer OTHER ==
[2024-04-02 17:11] LABS: BLOOD UREA NITROGEN 13 MG/DL (9-23); CALCIUM LEVEL 10.6 MG/DL (8.5-10.1); CARBON DIOXIDE LEVEL 29 MMOL/L (20-31); CHLORIDE LEVEL 106 MMOL/L (98-107); CREATININE FOR GFR 0.81 MG/DL (0.55-1.30); GLOMERULAR FILTRATION RATE > 60.0 (>51); GLUCOSE, FASTING 98 MG/DL (60-100); MAGNESIUM LEVEL 2.3 MG/DL (1.8-2.4); PHOSPHORUS LEVEL 2.9 MG/DL (2.5-4.9); POTASSIUM SERUM 4.4 MMOL/L (3.5-5.1); SODIUM LEVEL 144 MMOL/L (136-145)
[2024-04-02 17:13] LABS: TOTAL 25(OH) VITAMIN D 13.7 NG/ML (20.0-100.0); VITAMIN B12 LEVEL 324 PG/ML (211-911)
== END ==
LOC: M SFHCRHEU 12:58
PROVIDERS: ATTEND Internal Medicine
DX: S82.892A Other fracture of left lower leg, initial encounter for closed fracture (principal); Y92.9 Unspecified place or not applicable; Y93.9 Activity, unspecified; Y99.9 Unspecified external cause status; X58.XXXA Exposure to other specified factors, initial encounter

== ENCOUNTER → 2024-04-21 | Outpatient (CLI) | payer OTHER | LOC: M WHC 09:45 | PROVIDERS: ATTEND Internal Medicine | DX: Z13.820 Encounter for screening for osteoporosis (principal); S82.892A Other fracture of left lower leg, initial encounter for closed fracture; X58.XXXA Exposure to other specified factors, initial encounter; Y92.9 Unspecified place or not applicable; Z78.0 Asymptomatic menopausal state; M85.88 Other specified disorders of bone density and structure, other site; M85.852 Other specified disorders of bone density and structure, left thigh ==

== ENCOUNTER → 2025-03-18 | Outpatient (REF) | payer OTHER ==
[~2025-03-18] MED LIST changes: -BACTDSTA PO; +SULF-8 PO
[2025-03-18 17:51] LABS: CALCIUM LEVEL 9.4 MG/DL (8.5-10.1); CARBON DIOXIDE LEVEL 26.0 MMOL/L (20-31); CHLORIDE LEVEL 109.0 MMOL/L (98-107); CREATININE FOR GFR 0.9 MG/DL (0.55-1.30); GLOMERULAR FILTRATION RATE 74.1 (>51); POTASSIUM SERUM 4.2 MMOL/L (3.5-5.1); PTH INTACT 216.1 PG/ML (18.5-88.0); SODIUM LEVEL 142.0 MMOL/L (136-145)
[2025-03-18 17:52] LABS: TOTAL 25(OH) VITAMIN D 37.4 NG/ML (20.0-100.0)
== END ==
LOC: M SFHCRHEU 15:33
PROVIDERS: ATTEND Internal Medicine
DX: E83.52 Hypercalcemia (principal)